=== PATIENT | female | born 1995 | race Caucasian/White ===

== ENCOUNTER 2021-11-15 15:54 | Inpatient (IN) | payer OTHER ==
[2021-11-15] MEDS ORDERED: LIDOCAINE 0.5% (PF) 5 MG/ML (50 ML SDV) SQ PRN (17:20)
[2021-11-15] MEDS ORDERED: METHYLERGONOVINE 0.2 MG/ML 1 ML AMP IM PRN (17:20)
[2021-11-15] MEDS ORDERED: OXYTOCIN 10 UNIT/ML 1 ML VIAL IM PRN (17:20)
[2021-11-15] MEDS ORDERED: TERBUTALINE 1 MG/ML VIAL SQ PRN (17:20)
[2021-11-15] MEDS ORDERED: CARBOPROST TROMETHAMINE 250 MCG/ML 1 ML AMP IM PRN (17:20)
[2021-11-15] MEDS ORDERED: OXYTOCIN 30 UNITS/500 ML NS 30 UNIT in SALINE 1 500ML.BAG IV SCH (17:30)
[2021-11-15] MEDS: LACTATED RINGERS 1,000 ML IV SCH (17:45)
[2021-11-15 17:58] LABS: Basophils % (A) 0 %; Eosinophils # (A) 0.2 k/uL (0-0.7); Eosinophils % (A) 1 %; HCT 36.9 % (34.0-46.0); HGB 12.6 gm/dL (11.4-16.0); Lymphocytes # (A) 1.9 k/uL (1.0-4.8); Lymphocytes % (A) 13 %; MCH 31.6 pg (25.0-35.0); MCV 92.9 fL (80.0-100.0); Monocytes # (A) 0.5 k/uL (0-1.0); Monocytes % (A) 4 %; Neutrophils # (A) 11.7 k/uL (1.3-7.7); Neutrophils % (A) 81 %; Platelet Count 215 k/uL (150-450); RBC 3.98 m/uL (3.80-5.40); RDW 13.2 % (11.5-15.5); WBC 14.4 k/uL (3.8-10.6)
[2021-11-15] MEDS ORDERED: BUTORPHANOL 1 MG/ML 1 ML VIAL IV PRN (18:37)
--- NOTE | 2021-11-16 00:32 | P.HPOB ---
History of Present Illness H&P Date: 11/16/21 Chief Complaint: My water broke at 3:00 This is a 26-year-old white female 1 para 0 EDC 11/16/2021 at 40 weeks gestation who presented with her bag of water breaking at approximately 3 PM yesterday. She is having rare mild uterine contractions. Fetus is been active throughout the . She was scheduled today for induction with favorable cervix. Past medical history significant for anxiety as well as obesity. Past surgical history is negative. Current medications vitamins. ALLERGIES none known. history blood type is O-,'s pulse is O- as well. Urine culture, hepatitis B surface antigen, HIV testing, gonorrhea and chlamydia cultures, group B strep cultures all negative. One-hour Glucola 77. On exam patient is 5 foot 4 inches, 246 pounds, blood pressure 136/86. General physical exam is within normal limits. Cervix is 3-4 cm dilated, 70% effaced, - 2 station, vertex presentation. Amnio sure testing is positive. heart rate is consistent with reactive NST. Impression: 40 week intrauterine , scheduled for induction, spontaneous amniorrhexis. All signs otherwise reassuring. Plan: Patient will be admitted. Maternal and surveillance through the night. Oxytocin augmentation at 0500 hrs. Analgesic options reviewed with the patient. Review of Systems Constitutional: Reports as per HPI Past Medical History Past Medical History: No Reported History History of Any Multi-Drug Resistant Organisms: None Reported Additional Past Surgical History / Comment(s): [place] teeth removed Past Anesthesia/Blood Transfusion Reactions: No Reported Reaction Past Psychological History: No Psychological Hx Reported, Anxiety Smoking Status: Never smoker Past Alcohol Use History: None Reported Past Drug Use History: None Reported - Past Family History Mother Family Medical History: No Reported History Medications and Allergies Home Medications Medication Instructions Recorded Confirmed Type Aspirin [Adult Low Dose Aspirin EC] 81 mg PO DAILY 11/15/21 11/15/21 History Vit No.179/Iron/Folic 1 capsule PO DAILY 11/15/21 11/15/21 History [ Tablet] Allergies Allergy/AdvReac Type Severity Reaction Status Date / Time No Known Allergies Allergy Verified 11/15/21 16:00 Exam Vital Signs Temp Pulse Resp BP Pulse Ox 11/15/21 17:11 96.9 F L 87 16 136/86 95 11/15/21 16:00 96.9 F L 87 17 136/86 95 Intake and Output 11/15/21 11/15/21 11/16/21 14:59 22:59 06:59 Other: # Voids 1 Weight 111.584 kg See dictation under HPI please Results Result Diagrams: 11/15/21 17:20 Abnormal Lab Results - Last 24 Hours (Table) 11/15/21 Range/Units 17:20 WBC 14.4 H (3.8-10.6) k/uL Neutrophils # 11.7 H (1.3-7.7) k/uL Assessment and Plan Assessment: 40 week intrauterine , spontaneous amniorrhexis at home. All signs reassuring. Plan: Continue close maternal and surveillance. Oxytocin augmentation at 0500 hrs. Analgesic options reviewed. Time with Patient: Less than 30
--- NOTE | 2021-11-16 00:43 | P.MSEPDOC ---
Presenting Problems - Arrival Data Date of Arrival on Unit: 11/15/21 Time of Arrival on Unit: 15:50 Mode of Transport: Ambulatory - Complaint OB-Reason for Admission/Chief Complaint: Rule Out SROM Medical History - Information : 1 Para: 0 Term: 0 : 0 Abortions: Spontaneous or Elective: 0 Number of Living Children: 0 - Gestational Age Gestational Age by SIMIN (wks/days): 39 Weeks and 6 Days Review of Systems - Review of Systems Constitutional: No problems Breast: No problems ENT: No problems Cardiovascular: No problems Respiratory: No problems Gastrointestinal: No problems Genitourinary: No problems Musculoskeletal: No problems Neurological: No problems Skin: No problems Vital Signs - Temperature Temperature: 96.9 F Temperature Source: Temporal Artery Scan - Pulse Pulse Oximetery Pulse Rate: 87 Pulse Assessment Method: Pulse Oximetry - Respirations Respiratory Rate: 16 Oxygen Delivery Method: Room Air O2 Sat by Pulse Oximetry: 95 - Blood Pressure Right Arm Blood Pressure: 136/86 Blood Pressure Mean: 102 Blood Pressure Source: Automatic Cuff Medical Screen Scoring - Cervical Exam Dilation (cm): 3.5 Effacement (%): 70 Station: -2 Membranes: Ruptured - Uterine Contractions Intensity: Mild Resting: Soft to palpation - Assessment - Baby A Baseline FHR: 145 Heart Rate - NICHD Category: Category I (Normal) NST: Reactive Physician Notification - Physician Notified Physician Notified Date: 11/15/21 Physician Notified Time: 16:45 Physician: Laquita Lockwood Order Received: Yes - Notification Comment Comment: RN spoke with Dr. Lockwood regarding triage pt c/o SROM around 1500. Reported maternal vital signs, FHT mariola 1 reactive NST, irregular contx pattern, positive amnisure, cervical exam of 3.5/70/-2 and GBS negative. Additionally reported pt is scheduled for IOL for tomorrow morning with Dr. Lockwood. Per Dr. Lockwood, pt to be admitted to a suite, NPO at 0000, pitocin to be started at 0500. Orders received for stadol 1mg Q2H PRN or an epidural if wanted. Maternal Triage Index - Maternal Triage Index Presenting for scheduled procedure w/no complaint: No - Stat/Priority 1 Stat Priority 1: No - Urgent/Priority 2 Urgent Priority 2: No - Prompt/Priority 3 Prompt Priority 3: No - Non-Urgent/Priority 4 Non-Urgent Priority 4: Yes Criteria Met for Priority 4: Pt presents to triage with c/o SROM around 1500 this afternoon. Pt states it was a gush of clear fluid. Pt states she still feels like she is leaking at this time. Disposition - Disposition OB Disposition: Admit, LDRP Suite Transferred to:: Suite 8 I agree with the RN Medical Screening Exam: Yes Case reviewed; plan agreed upon as documented in EMR&OBIX.: Yes Diagnosis: LOUSE-BORNE TYPHUS
[2021-11-16] MEDS: LACTATED RINGERS 1,000 ML IV SCH ×2 (05:07→09:35)
[2021-11-16] MEDS ORDERED: SODIUM CHLORIDE 0.9% 100 ML BAG ONE (09:10)
[2021-11-16] MEDS ORDERED: fentaNYL (PF) 50 MCG/ML 5 ML AMP ONE (09:10)
[2021-11-16] MEDS ORDERED: ROPIVACAINE 5MG/ML 20ML VIAL ONE (09:10)
[2021-11-16] MEDS ORDERED: PENICILLIN G POTASSIUM 5,000,000 UNIT in DEXTROSE 5% IN WATER 100 ML IVPB STA ×2 (09:45)
[2021-11-16] MEDS: PENICILLIN G POTASSIUM 2,500,000 UNIT in DEXTROSE 5% IN WATER 100 ML IVPB SCH ×4 (13:56→18:56)
[2021-11-16] MEDS ORDERED: HYDROCORTISONE 2.5% RECTAL CREAM 30 GM TUBE RECTAL PRN (16:04)
[2021-11-16] MEDS ORDERED: diphenhydrAMINE 50 MG CAP PO PRN (16:04)
[2021-11-16] MEDS ORDERED: diphenhydrAMINE 25 MG CAP PO PRN (16:04)
[2021-11-16] MEDS ORDERED: LANOLIN CREAM 5 GM TUBE TOPICAL PRN (16:04)
[2021-11-16] MEDS ORDERED: diphenhydrAMINE 50 MG/ML 1 ML VIAL IVP PRN ×2 (16:04)
[2021-11-16] MEDS ORDERED: BENZOCAINE/MENTHOL SPRAY 1 GM/SPRAY AEROSOL TOPICAL PRN (16:04)
[2021-11-16] MEDS ORDERED: SIMETHICONE 80 MG CHEWABLE PO PRN (16:04)
[2021-11-16] MEDS ORDERED: ZOLPIDEM 5 MG TAB PO PRN (16:04)
[2021-11-16] MEDS ORDERED: diphenhydrAMINE ELIXIR 25 MG/10 ML CUP PO PRN (16:04)
--- NOTE | 2021-11-16 16:04 | P.PROBDLV ---
Vaginal Delivery Note - . Vaginal Delivery Note: This is a 26-year-old female 1 para 0 EDC 11/16/2021 at 40 weeks gestation who presented last night with spontaneous amniorrhexis, clear fluid. remarkable for negative group B strep cultures, rubella status immune, blood type O-, Eulogio is also Rh-. Please see dictated history and physical for details. Fluid was clear upon admission. Patient was admitted, with allowed to rest through the night. At 05 100 oxytocin was started and titrated per hospital protocol. She became uncomfortable, requested epidural, and displaced without difficulty per the anesthesia staff. She progressed to the first stage of labor was clearly dilated at 1257 hrs. Patient had no urge to push, and therefore she was allowed to "labor down" until an urge to push presented. Approximate 1400 hrs. the patient began pushing in the second stage. She pushed successfully with slow steady station. Ultimately the perineal body was draped and prepped in the usual fashion. Infant's head delivered occiput anterior and he restituted accordingly. There was a nuchal cord 1 that was read used. The right or anterior shoulder was delivered from underneath the pubic symphysis at which time the oropharynx, nasopharynx, and external nares were bulb suctioned. Heidy godinez was officially delivered of a liveborn male infant at 1538 hrs. scores of 8 and 9 at one and 5 minutes respectively were given per the nursing staff. weighed 3375 g or 7 lbs. 7 oz. The placenta delivered spontaneously, it was inspected and noted to be intact with trivascular cord at 1540 hrs. Perineal body was then redraped. Careful inspection of the cervix, vagina, perineum, periurethral, and perirectal areas revealed a small second- degree midline perineal laceration. This was repaired in the usual fashion, using 3-0 repeat suture for excellent reapproximation. Rectal examination revealed intact mucosa and good tone. All sponge needle and enhancement counts are correct. Total estimated blood loss 250 mL's. Patient and her were allowed to begin the bonding experience in the LDR. Please note that she had been given 2 doses of penicillin G for prolonged rupture of membranes. Circumcision is being requested.
[2021-11-16] MEDS: IBUPROFEN 600 MG TAB PO SCH (16:39)
[2021-11-16] MEDS: SENNOSIDES-DOCUSATE SODIUM 1 EACH TAB PO SCH (20:51)
[2021-11-16] MEDS: ACETAMINOPHEN TAB 325 MG TAB PO PRN (20:52)
[2021-11-17] MEDS: IBUPROFEN 600 MG TAB PO SCH ×4 (01:13→18:25)
[2021-11-17] MEDS: ACETAMINOPHEN TAB 325 MG TAB PO PRN ×3 (07:38→20:19)
[2021-11-17] MEDS: SENNOSIDES-DOCUSATE SODIUM 1 EACH TAB PO SCH ×2 (07:38→20:19)
--- NOTE | 2021-11-17 08:06 | P.DS ---
Providers Date of admission: 11/15/21 17:10 Expected date of discharge: 11/17/21 Attending physician: Laquita Lockwood Primary care physician: Stated None Hospital Course: this is a 26-year-old female 1 para 0 EDC 11/16/2021 who presented with spontaneous amniorrhexis, clear fluid. is remarkable for rubella status immune, blood type O-, group B strep cultures negative. Please see dictated history and physical for details. Patient went on to deliver vaginally a liveborn male with scores of 8 and 9 at one and 5 minutes respectively. She did have approximately an hour and 40 minute second stage of labor. There was a second-degree perineal laceration easily repaired. weighed 7 lbs. 7 oz. or 3375 g. Please see my dictated delivery note for details. Through the night the patient was unable to void due to perineal inflammation, [place] catheter was placed. It has been removed already this morning. Patient is ambulating and passing flatus. Minimal to moderate lochia rubra. Fundus is firm and in the midline, symmetric and 18 week size. Perineal tissues are edematous. We are awaiting a spontaneous void. [place] infant is doing well, circumcision has been performed. Breast-feeding is going well. Patient is judged to be in good condition for discharge home. She will be discharged home later today pending successful void. She will use [id number] Advil or Aleve, or Motrin as needed for pain. She will call with any fevers shakes or chills, foul smelling or copious lochia, with the passage of large blood clots, with any pain not alleviated by [id number]-[id number] products, or indeed with any concerns. We have briefly discussed contraceptive options and we will discuss this further in the office as appropriate. Assessment: doing well day #1 Patient Condition at Discharge: Good Plan - Discharge Summary Discharge Rx Participant: No New Discharge Prescriptions: No Action Aspirin [Adult Low Dose Aspirin EC] 81 mg PO DAILY Vit No.179/Iron/Folic [ Tablet] 1 capsule PO DAILY Discharge Medication List Aspirin [Adult Low Dose Aspirin EC] 81 mg PO DAILY 11/15/21 [History] Vit No.179/Iron/Folic [ Tablet] 1 capsule PO DAILY 11/15/21 [History] Follow up Appointment(s)/Referral(s): Laquita Lockwood MD [STAFF PHYSICIAN] - 6 Weeks Discharge Disposition: HOME SELF-CARE
[2021-11-17 10:28] VITALS: RESP 18
[2021-11-17] MEDS: LACTATED RINGERS 1,000 ML IV SCH ×3 (10:36→10:38)
[2021-11-17 19:13] VITALS: BP 117/77; PULSE 80; TEMP 98.3
== END 2021-11-17 21:00 | disposition home or self-care (01) | DRG 807 ==
LOC: FBPOP 15:54 → 4FBP 17:10
PROVIDERS: ADMIT Obstetrics & Gynecology; ATTEND Obstetrics & Gynecology
PROC: 3E0R3NZ Introduction of Analgesics, Hypnotics, Sedatives into Spinal Canal, Percutaneous Approach (ICD-10-PCS; principal; 2021-11-16)
PROC: 0KQM0ZZ Repair Perineum Muscle, Open Approach (ICD-10-PCS; principal; 2021-11-16)
PROC: 10E0XZZ Delivery of Products of Conception, External Approach (ICD-10-PCS; principal; 2021-11-16)
PROC: 00HU33Z Insertion of Infusion Device into Spinal Canal, Percutaneous Approach (ICD-10-PCS; principal; 2021-11-16)
DX: O42.02 Full-term premature rupture of membranes, onset of labor within 24 hours of rupture (principal); O69.81X0 Labor and delivery complicated by cord around neck, without compression, not applicable or unspecified; O70.1 Second degree perineal laceration during delivery; O99.214 Obesity complicating childbirth; E66.9 Obesity, unspecified; O99.344 Other mental disorders complicating childbirth; F41.9 Anxiety disorder, unspecified; O90.89 Other complications of the puerperium, not elsewhere classified; R33.9 Retention of urine, unspecified; Z3A.40 40 weeks gestation of pregnancy; Z37.0 Single live birth
CPT/HCPCS: 59025; 84112; 85025; 86850; 86900; 86901; 99213

== ENCOUNTER → 2023-06-07 | Outpatient (CLI) | payer BC | END | disposition home or self-care (01) | LOC: LABWHC1 14:52 | PROVIDERS: ATTEND Obstetrics & Gynecology Obstetrics | DX: Z00.00 Encounter for general adult medical examination without abnormal findings (principal) | CPT/HCPCS: 36415; 84144; 84702 ==

== ENCOUNTER → 2023-06-10 | Outpatient (CLI) | payer BC | END | disposition home or self-care (01) | LOC: LAB 13:00 | PROVIDERS: ATTEND Obstetrics & Gynecology Obstetrics | DX: Z34.90 Encounter for supervision of normal pregnancy, unspecified, unspecified trimester (principal); Z3A.00 Weeks of gestation of pregnancy not specified | CPT/HCPCS: 84702 ==

== ENCOUNTER 2024-10-29 06:06 | Inpatient (IN) | payer BC ==
[2024-10-29] MEDS ORDERED: METHYLERGONOVINE 0.2 MG/ML 1 ML AMP IM PRN (06:18)
[2024-10-29] MEDS ORDERED: TRANEXAMIC 1,000 MG/100ML-NACL 1,000 MG in EMPTY BAG 1 BAG IV PRN (06:18)
[2024-10-29] MEDS ORDERED: OXYTOCIN 10 UNIT/ML 1 ML VIAL IM PRN (06:18)
[2024-10-29] MEDS ORDERED: TERBUTALINE 1 MG/ML VIAL SQ PRN (06:18)
[2024-10-29] MEDS ORDERED: CARBOPROST TROMETHAMINE 250 MCG/ML 1 ML AMP IM PRN (06:18)
[2024-10-29] MEDS ORDERED: LIDOCAINE 0.5% (PF) 5 MG/ML (50 ML SDV) SQ PRN (06:18)
[2024-10-29] MEDS: LACTATED RINGERS 1,000 ML IV SCH (06:47)
[2024-10-29] MEDS: OXYTOCIN 30 UNITS/500 ML NS 30 UNIT in SALINE 1 500ML.BAG IV SCH (06:48)
[2024-10-29 06:58] LABS: Basophils # (A) 0.01 10*3/uL (0.00-0.10); Basophils % (A) 0.1 %; Eosinophils # (A) 0.12 10*3/uL (0.04-0.35); Eosinophils % (A) 1.1 %; HCT 34.6 % (37.2-46.3); HGB 11.7 g/dL (12.0-15.0); Lymphocytes # (A) 1.47 10*3/uL (0.90-5.00); Lymphocytes % (A) 12.9 %; MCH 30.5 pg (27.0-32.0); MCHC 33.8 g/dL (32.0-37.0); MCV 90.1 fL (80.0-97.0); Monocytes # (A) 0.54 10*3/uL (0.20-1.00); Monocytes % (A) 4.8 %; Neutrophils # (A) 9.17 10*3/uL (1.80-7.70); Neutrophils % (A) 80.7 %; Platelet Count 220 10*3/uL (140-440); RBC 3.84 10*6/uL (4.10-5.20); RDW 13.6 % (11.5-14.5); WBC 11.36 10*3/uL (4.50-10.00)
[2024-10-29] MEDS ORDERED: SODIUM CHLORIDE 0.9% 250 ML BAG ONE (09:30)
[2024-10-29] MEDS ORDERED: fentaNYL (PF) 50 MCG/ML 5 ML AMP ONE (09:30)
[2024-10-29] MEDS ORDERED: ROPIVACAINE 5 MG/ML 30 ML VIAL ONE (09:30)
--- NOTE | 2024-10-29 12:34 | P.HPOB ---
History of Present Illness H&P Date: 10/29/24 Chief Complaint: IUP at 40-0/7 weeks 29-year-old -0-1-1 at 40-0/7 weeks, estimated date of confinement 10/29 presents for induction of labor. Patient has been receiving routine care which has been essentially uncomplicated. Patient notes good movement denies vaginal bleeding or loss of fluid. On blood work this patient has a blood type of O-, rubella status immune, hepatitis B surface [place] negative, HIV negative, RPR nonreactive, hepatitis C nonreactive, grew beta strep culture negative Review of Systems Constitutional: Denies chills, Denies fatigue, Denies fever Ears, nose, mouth and throat: Denies headache Cardiovascular: Reports leg edema Respiratory: Denies dyspnea Gastrointestinal: Denies constipation, Denies diarrhea, Denies nausea, Denies vomiting Genitourinary: Reports Past Medical History Past Medical History: No Reported History History of Any Multi-Drug Resistant Organisms: None Reported Additional Past Surgical History / Comment(s): [place] teeth removed Past Anesthesia/Blood Transfusion Reactions: No Reported Reaction Past Psychological History: No Psychological Hx Reported, Anxiety Smoking Status: Never smoker Past Alcohol Use History: None Reported Past Drug Use History: None Reported - Past Family History Mother Family Medical History: No Reported History Medications and Allergies Home Medications Medication Instructions Recorded Confirmed Type Aspirin [Adult Low Dose Aspirin EC] 81 mg PO DAILY 11/15/21 10/29/24 History Vit No.179/Iron/Folic 1 capsule PO DAILY 11/15/21 10/29/24 History [ Tablet] Allergies Allergy/AdvReac Type Severity Reaction Status Date / Time No Known Allergies Allergy Verified 10/29/24 06:17 Exam Osteopathic Statement: *. No significant issues noted on an osteopathic structural exam other than those noted in the History and Physical/Consult. Vital Signs Temp Pulse Resp BP Pulse Ox 10/29/24 06:15 98.4 F 93 16 130/86 97 Intake and Output 10/28/24 10/29/24 10/29/24 22:59 06:59 14:59 Other: Weight 113.398 kg Targeted physical exam was performed this date General Is well-nourished well-developed female in no acute distress, breathing appears nonlabored, abdomen is gravid, on cervical exam she is 4/70/-2 station amniotomy was performed and copious clear fluid was obtained. heart tones are noted to be category 1 and she is andrea irregularly. Some discomfort with c ontractions Results Result Diagrams: 10/29/24 06:30 Abnormal Lab Results - Last 24 Hours (Table) 10/29/24 Range/Units 06:30 WBC 11.36 H (4.50-10.00) 10*3/uL RBC 3.84 L (4.10-5.20) 10*6/uL Hgb 11.7 L (12.0-15.0) g/dL Hct 34.6 L (37.2-46.3) % Immature Gran # 0.05 H (0.00-0.04) 10*3/uL Neutrophils # 9.17 H (1.80-7.70) 10*3/uL Assessment and Plan (1) Term Current Visit: Yes Status: Acute Code(s): Z34.90 - ENCNTR FOR SUPRVSN OF NORMAL , UNSP, UNSP TRIMESTER SNOMED Code(s): 01888923 Plan: Admit to labor and delivery Clear liquids as tolerated Epidural when patient desires Anticipate spontaneous vaginal delivery
[2024-10-29] MEDS ORDERED: ZOLPIDEM 5 MG TAB PO PRN (12:35)
[2024-10-29] MEDS ORDERED: HYDROCORTISONE 2.5% RECTAL CREAM 30 GM TUBE RECTAL PRN (12:35)
[2024-10-29] MEDS ORDERED: diphenhydrAMINE 50 MG/ML 1 ML VIAL IVP PRN ×2 (12:35)
[2024-10-29] MEDS ORDERED: LANOLIN CREAM 1 GM TUBE TOPICAL PRN (12:35)
[2024-10-29] MEDS ORDERED: diphenhydrAMINE 25 MG CAP PO PRN (12:35)
[2024-10-29] MEDS ORDERED: SIMETHICONE 80 MG CHEWABLE PO PRN (12:35)
--- NOTE | 2024-10-29 12:35 | P.PROBDLV ---
Vaginal Delivery Note - . Vaginal Delivery Note: Date of service 10/29/2024 Findings viable female delivered at 1203, weight of 7 pounds 1 ounce, Apgars of 8 and 9 at 1 and 5 minutes respectively 29-year-old -0-1-1 at 40-0/7 weeks presents for induction of labor. Patient was admitted Pitocin induction of labor was begun. Amniotomy was performed clear fluid was obtained. Patient progressed through labor becoming uncomfortable and requested epidural. Epidural was placed without difficulty by the anesthesia department. Patient made good progress toward complete dilation. Once completely dilated patient began pushing and had a normal spontaneous vaginal delivery of a viable female infant, loose nuchal cord delivered through, right compound hand. Weight of 7 pounds 1 ounce, Apgars of 8 and 9 at 1 and 5 minutes respectively. After 2-minute delay the umbilical cord was doubly clamped and cut. Placenta was delivered spontaneously intact with a three- vessel cord being noted. Inspection of patient's vaginal vault second-degree vaginal laceration was appreciated. This was repaired in the usual fashion with 3-0 Rapide after instillation of lidocaine. Hemostasis was noted after closure. Uterus was noted to be firm below the umbilicus at this time. All counts were correct x 2 at the end of the delivery Patient and tolerated delivery well and are resting comfortably
[2024-10-29] MEDS: IBUPROFEN 800 MG TAB PO SCH (13:00)
[2024-10-29] MEDS: SENNOSIDES-DOCUSATE SODIUM 1 EACH TAB PO SCH (19:49)
[2024-10-29] MEDS: ACETAMINOPHEN TAB 500 MG TAB PO SCH (19:49)
[2024-10-29 19:56] VITALS: TEMP 98.3
--- NOTE | 2024-10-30 08:45 | P.DS ---
Providers Date of admission: 10/29/24 06:06 Expected date of discharge: 10/30/24 Attending physician: Sirisha Patel Primary care physician: Stated None - Discharge Diagnosis(es) (1) Term Current Visit: Yes Status: Acute (2) Status post normal vaginal delivery Current Visit: Yes Status: Acute (3) Obstetrical laceration, second degree Current Visit: Yes Status: Acute Hospital Course: 29-year-old 3 para 2-0-1-2 that presented to labor and delivery at 40- 0/7 weeks for scheduled induction of labor. Patient had been receiving routine care which has been essentially uncomplicated. Patient was admitted to labor and delivery Pitocin induction of labor was begun. Patient underwent amniotomy clear fluid was obtained. Patient did become uncomfortable and request epidural. Patient made quick progress toward complete dilation. Once completely dilated she began pushing and had a normal spontaneous vaginal delivery of a viable female infant at 1203, loose nuchal was noted along with right compound hand. Viable female infant delivered at 1203 weight of 7 pounds 1 ounce, Apgars of 8 and 9 at 1 and 5 minutes respectively. Second-degree midline laceration was appreciated, this was injected with lidocaine and repaired in the usual fashion with 3-0 Rapide. Patient's course has been uneventful. In this day #1 she is ambulating and voiding without difficulty. She is tolerating a regular diet without nausea or vomiting. She states her pain is well-controlled. She denies concerns. She would like discharge home in 24 hours. Patient Condition at Discharge: Good Plan - Discharge Summary New Discharge Prescriptions: No Action Aspirin [Adult Low Dose Aspirin EC] 81 mg PO DAILY Vit No.179/Iron/Folic [ Tablet] 1 capsule PO DAILY Discharge Medication List Aspirin [Adult Low Dose Aspirin EC] 81 mg PO DAILY 11/15/21 [History] Vit No.179/Iron/Folic [ Tablet] 1 capsule PO DAILY 11/15/21 [History] Follow up Appointment(s)/Referral(s): Sirisha Patel DO [Doctor of Osteopathic Medicine] - 12/10/24 11:00 am Patient Instructions/Handouts: Vaginal Delivery (DC), Vaginal Delivery (GEN) Activity/Diet/Wound Care/Special Instructions: No tub baths or intercourse until 6 weeks , [id number] ibuprofen 600 mg or 3 tablets every 6 hours as needed for pain. Routine check at 6 weeks. Should she have any concerns prior to this appointment she is urged to call the office and be seen prior Discharge Disposition: HOME SELF-CARE
[2024-10-30 08:46] VITALS: BP 124/85; PULSE 106; RESP 16
== END 2024-10-30 13:05 | disposition home or self-care (01) | DRG 807 ==
LOC: 4FBP 06:06
PROVIDERS: ADMIT Obstetrics & Gynecology Obstetrics; ATTEND Obstetrics & Gynecology Obstetrics
PROC: 10E0XZZ Delivery of Products of Conception, External Approach (ICD-10-PCS; principal; 2024-10-29)
PROC: 0KQM0ZZ Repair Perineum Muscle, Open Approach (ICD-10-PCS; principal; 2024-10-29)
PROC: 3E033VJ Introduction of Other Hormone into Peripheral Vein, Percutaneous Approach (ICD-10-PCS; 2024-10-29)
PROC: 10907ZC Drainage of Amniotic Fluid, Therapeutic from Products of Conception, Via Natural or Artificial Opening (ICD-10-PCS; 2024-10-29)
DX: O48.0 Post-term pregnancy (principal); Z37.0 Single live birth; O69.81X0 Labor and delivery complicated by cord around neck, without compression, not applicable or unspecified; O70.1 Second degree perineal laceration during delivery; Z3A.40 40 weeks gestation of pregnancy; Z79.82 Long term (current) use of aspirin; Z79.899 Other long term (current) drug therapy
CPT/HCPCS: 85025; 86850; 86900; 86901